=== PATIENT | female | born 1985 | race Two or more races ===

== ENCOUNTER 2020-07-20 15:59 | Emergency (ER) | payer OTHER ==
[~2020-07-20] VITALS: Ht 170.2 cm; Wt 106.9 kg
--- NOTE | 2020-07-20 16:23 | NUR ---
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
[2020-07-20 17:34] VITALS: BP 117/73
== END 2020-07-20 17:43 | disposition home or self-care (01) ==
LOC: ED 17:35
DX: U07.1 COVID-19 (principal); J12.9 Viral pneumonia, unspecified; R94.31 Abnormal electrocardiogram [ECG] [EKG]; R06.02 Shortness of breath
CPT/HCPCS: 71045; 93005; 99283